=== PATIENT | female | born 1995 | race African-American/Black ===

== ENCOUNTER 2017-12-27 11:36 | Observation (INO) | payer MEDICAID, OTHER ==
[2017-12-27] MEDS ORDERED: PREN-96 PO (13:26)
== END 2017-12-27 13:45 | disposition home or self-care (01) | DRG 566 ==
LOC: LDRP 11:36
PROVIDERS: ADMIT Obstetrics & Gynecology; ATTEND Obstetrics & Gynecology
DX: O26.893 Other specified pregnancy related conditions, third trimester (principal); Z3A.34 34 weeks gestation of pregnancy
CPT/HCPCS: 59025; 76818; 81002; G0378

== ENCOUNTER 2018-01-03 10:47 | Observation (INO) | payer MEDICAID ==
[~2018-01-03 10:47] MED LIST: PREN-96 PO
[2018-01-03 13:19] LABS: Alcohol, Urine < 3.0 mg/dL (0-5); Amphetamine Screen, Urine NEGATIVE (NEGATIVE); Barbiturate Scree,Urine NEGATIVE (NEGATIVE); Benzodiazephine Screen, Urine NEGATIVE (NEGATIVE); Cannabinoid Screen, Urine NEGATIVE (NEGATIVE); Cocaine Screen, Urine NEGATIVE (NEGATIVE); Opiate Scree,Urine NEGATIVE (NEGATIVE); Phencyclidine Screen, Urine NEGATIVE (NEGATIVE)
== END 2018-01-03 13:30 | disposition home or self-care (01) | DRG 566 ==
LOC: LDRP 10:47
PROVIDERS: ADMIT Specialist; ATTEND Specialist
DX: O26.893 Other specified pregnancy related conditions, third trimester (principal); Z3A.35 35 weeks gestation of pregnancy
CPT/HCPCS: 59025; 76818; 80307; 81002; G0378

== ENCOUNTER 2018-01-07 10:40 | Observation (INO) | payer MEDICAID ==
[~2018-01-07] VITALS: Ht 162.6 cm; Wt 54.4 kg
[2018-01-07] MEDS ORDERED: LACTATED RINGER'S 1,000 ML IV ONE (12:27)
[2018-01-07] MEDS ORDERED: TERBUTALINE SULFATE 1 MG/ML 1ML VIAL SC ONE (12:30)
[2018-01-07 12:40] LABS: Alcohol, Urine < 3.0 mg/dL (0-5); Amphetamine Screen, Urine NEGATIVE (NEGATIVE); Barbiturate Scree,Urine NEGATIVE (NEGATIVE); Benzodiazephine Screen, Urine NEGATIVE (NEGATIVE); Cannabinoid Screen, Urine NEGATIVE (NEGATIVE); Cocaine Screen, Urine NEGATIVE (NEGATIVE); Opiate Scree,Urine NEGATIVE (NEGATIVE); Phencyclidine Screen, Urine NEGATIVE (NEGATIVE)
== END 2018-01-07 14:45 | disposition home or self-care (01) | DRG 566 ==
LOC: LDRP 10:40
PROVIDERS: ADMIT Specialist; ATTEND Specialist
DX: O62.9 Abnormality of forces of labor, unspecified (principal); Z3A.36 36 weeks gestation of pregnancy
CPT/HCPCS: 59025; 76818; 80307; 81002; 96360; 96361; 96372; G0378; J3105

== ENCOUNTER 2018-01-10 09:37 | Observation (INO) | payer MEDICAID ==
[~2018-01-10] VITALS: Ht 154.9 cm; Wt 54.4 kg
[2018-01-10] MEDS ORDERED: LACTATED RINGER'S 500 ML IV ONE (11:20)
[2018-01-10] MEDS ORDERED: LACTATED RINGER'S 2,000 ML IV ONE (11:30)
== END 2018-01-10 15:20 | disposition home or self-care (01) | DRG 566 ==
LOC: LDRP 09:37
PROVIDERS: ADMIT Obstetrics & Gynecology; ATTEND Obstetrics & Gynecology
DX: O41.03X1 Oligohydramnios, third trimester, fetus 1 (principal); Z3A.36 36 weeks gestation of pregnancy
CPT/HCPCS: 59025; 76815; 76818; 81002; 96360; 96361; G0378; J7120

== ENCOUNTER 2018-01-11 07:05 | Observation (INO) | payer MEDICAID ==
[2018-01-11] MEDS ORDERED: BETAMETHASONE ACET (6MG/ML) 5ML VIAL IM ONE (08:30)
== END 2018-01-11 09:00 | disposition home or self-care (01) | DRG 566 ==
LOC: LDRP 07:05
PROVIDERS: ADMIT Obstetrics & Gynecology; ATTEND Obstetrics & Gynecology
DX: O26.893 Other specified pregnancy related conditions, third trimester (principal); Q60.2 Renal agenesis, unspecified; Z3A.36 36 weeks gestation of pregnancy
CPT/HCPCS: 59025; 76815; 81002; 96372; G0378; J0702

== ENCOUNTER 2018-01-12 13:50 | Observation (INO) | payer MEDICAID ==
[~2018-01-12] VITALS: Ht 30.5 cm; Wt 0.5 kg
[2018-01-12] MEDS ORDERED: BETAMETHASONE ACET (6MG/ML) 5ML VIAL IM SCH (14:00)
== END 2018-01-12 14:45 | disposition home or self-care (01) | DRG 566 ==
LOC: LDRP 13:50
PROVIDERS: ADMIT Obstetrics & Gynecology; ATTEND Obstetrics & Gynecology
DX: O36.5930 Maternal care for other known or suspected poor fetal growth, third trimester, not applicable or unspecified (principal); Z3A.37 37 weeks gestation of pregnancy
CPT/HCPCS: 59025; 81002; 96372; G0378

== ENCOUNTER 2018-01-13 19:35 | Inpatient (IN) | payer MEDICAID ==
[~2018-01-13] VITALS: Ht 160 cm; Wt 51.7 kg
[2018-01-13] MEDS ORDERED: LACTATED RINGER'S 1,000 ML IV SCH (21:29)
[2018-01-13 23:18] LABS: Basophils # (auto) 0 uL; Basophils % (auto) 0.1 % (0.0-2.0); Eosinophils # (auto) 0 uL; Hemoglobin 11.9 g/dL (12.2-16.2); Lymphocytes # (auto) 1.8 uL; Monocytes # (auto) 0.8 uL
[2018-01-13 23:19] LABS: Hematocrit 36.8 % (36.0-46.0); Lymphocytes % (auto) 14.5 % (10.0-50.0); Mean Corpuscular Hemoglobin 27.1 pg (28.0-32.0); Mean Corpuscular Hgb Conc. 32.4 g/dL (32.0-36.0); Mean Corpuscular Volume 83.7 fL (80.0-100.0); Monocytes % (auto) 6.7 % (0.0-12.0); Neutrophils # (auto) 10.1 uL; Neutrophils % (auto) 78.7 % (37.0-80.0); Nucleated Red Blood Cells % 0.2 %; Platelet Count (auto) 115 10^3/uL (140-450); Red Blood Cells 4.39 10^6/uL (4.0-5.20); Red Cell Distribution Width 16.3 % (11.8-14.3); White Blood Cell 12.8 10^3/uL (4.4-10.8)
[2018-01-13 23:28] LABS: INR 0.82 (0.9-1.15); Partial Thromboplastin Time 23.9 sec (23.78-33.04); Prothrombin Time 8.9 sec (9.27-12.13)
[2018-01-13 23:33] LABS: Albumin 2.7 g/dL (3.4-5.0); Calcium 8.5 mg/dL (8.5-10.1); Potassium 3.9 mmol/L (3.5-5.1)
[2018-01-13 23:36] LABS: Bilirubin, Total 0.1 mg/dL (0.2-1.0); Total Protein 7.1 g/dL (6.4-8.2)
[2018-01-13 23:40] LABS: Urine Bacteria MOD /hpf (None Seen); Urine Blood Negative /uL (Negative); Urine Specific Gravity 1.007 (1.001-1.035); Urine WBC 3 /hpf (0 - 5)
[2018-01-14] VITALS (13 sets, daily range): BP systolic 61–149; BP diastolic 43–93
[2018-01-14] LABS: Alcohol, Urine < 3.0 mg/dL (0-5); Amphetamine Screen, Urine NEGATIVE (NEGATIVE); Barbiturate Scree,Urine NEGATIVE (NEGATIVE); Benzodiazephine Screen, Urine NEGATIVE (NEGATIVE); Cannabinoid Screen, Urine NEGATIVE (NEGATIVE); Cocaine Screen, Urine NEGATIVE (NEGATIVE); Opiate Scree,Urine NEGATIVE (NEGATIVE); Phencyclidine Screen, Urine NEGATIVE (NEGATIVE)
[2018-01-14] MEDS ORDERED: fentaNYL CITRATE 100 MCG/2 ML VL ONE (07:26)
[2018-01-14] MEDS ORDERED: MORPHINE SULF(PF) 0.5MG/ML 10ML VIAL ONE (07:26)
[2018-01-14] MEDS ORDERED: PHENYLEPHRINE HCL 10 MG/ML VL ONE (07:27)
[2018-01-14] MEDS ORDERED: diphenhdrAMINE HCL 50 MG/1 ML VL ONE (07:27)
[2018-01-14] MEDS ORDERED: ePHEDrine SULFATE 50 MG/ML AMP ONE (07:27)
[2018-01-14] MEDS ORDERED: ceFAZolin 1GM VL ONE (07:27)
[2018-01-14] MEDS ORDERED: ONDANSETRON HCL 4 MG/2 ML VIAL ONE (07:27)
[2018-01-14] MEDS ORDERED: DEXAMETHASONE SOD PHOS 10MG/1ML VIAL INJ ONE (07:27)
[2018-01-14] MEDS ORDERED: OXYTOCIN 10 UNIT/ML 10ML VIAL ONE (07:27)
[2018-01-14] MEDS ORDERED: NALOXONE HCL 0.4 MG/ML VIAL IV PRN (08:30)
[2018-01-14] MEDS ORDERED: diphenhdrAMINE HCL 50 MG/1 ML VL IV PRN (08:30)
[2018-01-14] MEDS ORDERED: KETOROLAC TROMETH 30 MG/ML 1ML VIAL IV PRN (08:30)
[2018-01-14] MEDS ORDERED: ONDANSETRON HCL 4 MG/2 ML VIAL IV PRN ×2 (08:30→08:45)
[2018-01-14] MEDS ORDERED: MORPHINE SULFATE 4 MG/ML SYR/VIAL IV PRN (08:45)
[2018-01-14] MEDS ORDERED: OXYTOCIN 10UNIT/ML 1ML VIAL ONE (08:52)
[2018-01-14] MEDS: KETOROLAC TROMETH 30 MG/ML 1ML VIAL IV SCH ×2 (12:05→17:58)
[2018-01-14] MEDS ORDERED: FLUoxetine HCL 20 MG CAP PO ONE (14:30)
[2018-01-14] MEDS ORDERED: risperiDONE 1 MG TAB PO ONE (14:30)
[2018-01-14] MEDS: ceFAZolin 1GM/50ML 50 ML IV SCH ×2 (15:45→23:15)
[2018-01-14] MEDS: LACTATED RINGER'S 1,000 ML IV SCH ×2 (16:25→16:32)
[2018-01-14] MEDS ORDERED: ALUM & MAG HYDROX-SIMETH LIQ(MAALOX) 30 ML PO PRN (21:30)
[2018-01-15] MEDS: KETOROLAC TROMETH 30 MG/ML 1ML VIAL IV SCH ×2 (00:14→06:15)
[2018-01-15] MEDS: LACTATED RINGER'S 1,000 ML IV SCH (01:00)
[2018-01-15 03:30] VITALS: BP 120/71
[2018-01-15 04:08] LABS: RPR Non Reactive (Non Reactive)
[2018-01-15] MEDS: ceFAZolin 1GM/50ML 50 ML IV SCH (06:54)
[2018-01-15 06:58] VITALS: BP 129/92
[2018-01-15 07:55] LABS: Basophils # (auto) 0 uL; Eosinophils # (auto) 0 uL; Hemoglobin 9.5 g/dL (12.2-16.2); Monocytes # (auto) 1.1 uL
[2018-01-15 07:58] LABS: Basophils % (auto) 0.1 % (0.0-2.0); Eosinophils % (auto) 0.1 % (0.0-7.0); Hematocrit 29.7 % (36.0-46.0); Lymphocytes # (auto) 1.8 uL; Lymphocytes % (auto) 11.4 % (10.0-50.0); Mean Corpuscular Hemoglobin 26.6 pg (28.0-32.0); Mean Corpuscular Hgb Conc. 31.9 g/dL (32.0-36.0); Mean Corpuscular Volume 83.5 fL (80.0-100.0); Monocytes % (auto) 7.1 % (0.0-12.0); Neutrophils # (auto) 13.1 uL; Neutrophils % (auto) 81.3 % (37.0-80.0); Platelet Count (auto) 101 10^3/uL (140-450); Red Blood Cells 3.56 10^6/uL (4.0-5.20); Red Cell Distribution Width 16.3 % (11.8-14.3); White Blood Cell 16.1 10^3/uL (4.4-10.8)
[2018-01-15] MEDS ORDERED: HYDROcodone-ACET 5/325MG TAB PO PRN (08:00)
[2018-01-15] MEDS ORDERED: BISACODYL 10 MG RECT SUPP PR PRN (08:00)
[2018-01-15] MEDS: SIMETHICONE 80 MG CHEWABLE TABLET PO SCH ×4 (10:25→22:15)
[2018-01-15] MEDS: DOCUSATE SOD 100 MG CAP PO SCH ×2 (10:25→22:15)
[2018-01-15] MEDS: FLUoxetine HCL 20 MG CAP PO SCH (10:26)
[2018-01-15] MEDS: risperiDONE 1 MG TAB PO SCH (10:26)
[2018-01-15] MEDS: FAMOTIDINE 20 MG TAB PO SCH (10:26)
[2018-01-15 11:00] VITALS: BP 112/60
[2018-01-15] MEDS: IBUPROFEN 800 MG TAB PO PRN ×2 (12:01→22:40)
[2018-01-15 14:45] VITALS: BP 131/80
[2018-01-15 19:00] VITALS: BP 127/80
[2018-01-15 23:04] VITALS: BP 138/75
[2018-01-16 03:06] VITALS: BP 119/46
[2018-01-16] MEDS: SIMETHICONE 80 MG CHEWABLE TABLET PO SCH ×4 (06:25→23:00)
[2018-01-16] MEDS ORDERED: LACT. RINGERS/OXYTOCIN 20UNITS 1,000 ML IV ONE (06:59)
[2018-01-16 07:30] VITALS: BP 115/82
[2018-01-16] MEDS: DOCUSATE SOD 100 MG CAP PO SCH ×2 (09:31→23:00)
[2018-01-16] MEDS: FLUoxetine HCL 20 MG CAP PO SCH (09:31)
[2018-01-16] MEDS: FAMOTIDINE 20 MG TAB PO SCH (09:31)
[2018-01-16] MEDS: IBUPROFEN 800 MG TAB PO PRN (09:32)
[2018-01-16] MEDS: risperiDONE 1 MG TAB PO SCH (09:32)
[2018-01-16 11:00] VITALS: BP 131/74
[2018-01-16] MEDS: HYDROcodone-ACET 5/325MG TAB PO PRN (12:00)
[2018-01-16 15:00] VITALS: BP 138/84
[2018-01-16] MEDS ORDERED: TETANUS-DIPTH-ACEL PERTUSSIS 0.5ML SYRG IM ONE (15:45)
[2018-01-16 19:30] VITALS: BP 119/81
[2018-01-16 23:14] VITALS: BP 128/75
[2018-01-17] MEDS: IBUPROFEN 800 MG TAB PO PRN (02:50)
[2018-01-17 03:12] VITALS: BP 112/84
[2018-01-17] MEDS: HYDROcodone-ACET 5/325MG TAB PO PRN (03:45)
[2018-01-17] MEDS: SIMETHICONE 80 MG CHEWABLE TABLET PO SCH (05:51)
[2018-01-17 06:49] VITALS: BP 127/64
[2018-01-17] MEDS ORDERED: RISP3TAB44 PO (08:00)
[2018-01-17] MEDS ORDERED: FLUO-125 PO (08:00)
== END 2018-01-17 09:35 | disposition home or self-care (01) | DRG 540 ==
LOC: OBSVTOIN 19:35 → LDRP 19:35
PROVIDERS: ADMIT Specialist; ATTEND Specialist
PROC: 10D00Z1 Extraction of Products of Conception, Low, Open Approach (ICD-10-PCS; principal; 2018-01-14 07:28)
PROC: 3E0234Z Introduction of Serum, Toxoid and Vaccine into Muscle, Percutaneous Approach (ICD-10-PCS; 2018-01-16)
DX: O69.81X0 Labor and delivery complicated by cord around neck, without compression, not applicable or unspecified (principal); Q60.2 Renal agenesis, unspecified; O41.03X0 Oligohydramnios, third trimester, not applicable or unspecified; O36.5930 Maternal care for other known or suspected poor fetal growth, third trimester, not applicable or unspecified; F20.9 Schizophrenia, unspecified; Z37.0 Single live birth; Z3A.37 37 weeks gestation of pregnancy; O99.344 Other mental disorders complicating childbirth; Z23 Encounter for immunization
CPT/HCPCS: 36415; 51702; 59025; 76818; 80053; 80307; 81001; 81002; 85025; 85610; 85730; 86592; 86850; 86900; 86901; 90715; 96365; 96366; 96372; 96374; 96375; G0378; J0690; J1100; J1885; J2405; J2590

== ENCOUNTER 2019-07-31 11:38 | Emergency (ER) | payer MEDICAID ==
[~2019-07-31] VITALS: Ht 165.1 cm; Wt 51.3 kg
[~2019-07-31 11:38] MED LIST changes: +FLUO-125 PO; -PREN-96 PO; +RISP3TAB44 PO
[2019-07-31 17:45] VITALS: BP 132/58
== END 2019-07-31 17:49 | disposition home or self-care (01) ==
LOC: ER 11:38
DX: O26.893 Other specified pregnancy related conditions, third trimester (principal); R10.9 Unspecified abdominal pain; O21.8 Other vomiting complicating pregnancy; Z79.899 Other long term (current) drug therapy; Z3A.28 28 weeks gestation of pregnancy
CPT/HCPCS: 36415; 76805; 84702